=== PATIENT | female | born 1980 | race Caucasian/White ===

== ENCOUNTER → 2020-09-13 | Outpatient (CLI) | payer BC ==
[~2020-09-13] MED LIST: ANAPROX DS550 MG PO; CHANTIX1 MG PO; METOPROLOL SUCC25 MG PO; PERCOCET 5/325 T1 EA PO; PROTONIX 40 MG40 M1 PO; STOOL SOFTENER240 MG PO
[2020-09-13 06:59] LABS: HEMOGLOBIN 13.5 gm/dl (12.3-15.3); RED BLOOD COUNT 4.63 M/UL (4.00-5.10); WHITE BLOOD COUNT 9.8 K/UL (4.5-11.0)
[2020-09-13 07:37] LABS: BUN/CREATININE RATIO 17 (0-10)
[2020-09-14 08:13] LABS: FSH, SERUM 2.6 mIU/mL (.); VITAMIN D, 25-HYDROXY 26.2 ng/mL (30.0-100.0)
[2020-09-14 10:13] LABS: THYROXINE (T4) 7.3 ug/dL (4.5-12.0)
== END ==
LOC: LAB 06:10
PROVIDERS: Nurse Practitioner
DX: E55.9 Vitamin D deficiency, unspecified (principal); K21.9 Gastro-esophageal reflux disease without esophagitis; E78.5 Hyperlipidemia, unspecified; N91.2 Amenorrhea, unspecified
CPT/HCPCS: 36415; 80053; 80061; 83001; 83002; 84436; 84443; 84480; 85025; 85652; 86140

== ENCOUNTER → 2020-11-21 | Outpatient (CLI) | payer BC | LOC: RAD 15:41 | DX: F17.200 Nicotine dependence, unspecified, uncomplicated (principal) | CPT/HCPCS: 71046 ==

== ENCOUNTER → 2020-12-05 | Outpatient (CLI) | payer BC ==
[2020-12-05 08:30] LABS: HEMOGLOBIN 13.3 gm/dl (12.3-15.3); RED BLOOD COUNT 4.75 M/UL (4.00-5.10); WHITE BLOOD COUNT 7.8 K/UL (4.5-11.0)
[2020-12-05 08:54] LABS: BUN/CREATININE RATIO 9 (0-10)
[2020-12-06 08:14] LABS: THYROXINE (T4) 7.3 ug/dL (4.5-12.0); VITAMIN D, 25-HYDROXY 29.8 ng/mL (30.0-100.0)
== END ==
LOC: LAB 07:05
PROVIDERS: Nurse Practitioner
DX: K21.9 Gastro-esophageal reflux disease without esophagitis (principal); E03.9 Hypothyroidism, unspecified; E55.9 Vitamin D deficiency, unspecified
CPT/HCPCS: 36415; 80053; 84436; 84443; 84480; 85025

== ENCOUNTER → 2020-12-12 | Outpatient (CLI) | payer BC ==
[2020-12-12 13:37] LABS: HEMOGLOBIN 13.5 gm/dl (12.3-15.3); RED BLOOD COUNT 4.62 M/UL (4.00-5.10); WHITE BLOOD COUNT 7.9 K/UL (4.5-11.0)
== END ==
LOC: LAB 12:58
PROVIDERS: Nurse Practitioner
DX: R68.89 Other general symptoms and signs (principal)
CPT/HCPCS: 36415; 85025

== ENCOUNTER → 2021-01-19 | Outpatient (CLI) | payer BC ==
[2021-01-19 09:25] LABS: HEMOGLOBIN 13.9 gm/dl (12.3-15.3); RED BLOOD COUNT 4.81 M/UL (4.00-5.10); WHITE BLOOD COUNT 8.4 K/UL (4.5-11.0)
== END ==
LOC: OPSV2 08:00
PROVIDERS: Obstetrics & Gynecology
DX: Z01.818 Encounter for other preprocedural examination (principal); N92.0 Excessive and frequent menstruation with regular cycle
CPT/HCPCS: 81001; 85025; 93005

== ENCOUNTER 2021-01-26 11:12 | Day surgery (SDC) | payer BC ==
[~2021-01-26] VITALS: Ht 165.1 cm; Wt 108.0 kg
[~2021-01-26 11:12] MED LIST changes: -ANAPROX DS550 MG PO; -PERCOCET 5/325 T1 EA PO; -STOOL SOFTENER240 MG PO
[2021-01-26] MEDS ORDERED: STOOL SOFTENER240 MG PO (16:23)
[2021-01-26] MEDS ORDERED: PERCOCET 5/325 T1 EA PO (16:23)
[2021-01-27 04:49] LABS: HEMOGLOBIN 13.5 gm/dl (12.3-15.3)
[2021-01-27] MEDS ORDERED: ANAPROX DS550 MG PO (08:26)
== END 2021-01-27 11:27 | disposition home or self-care (01) ==
LOC: OR 11:12 → MED SURG 4 16:40 → OR 01-27 11:27
PROVIDERS: Obstetrics & Gynecology
DX: N80.0 Endometriosis of uterus (principal); N72 Inflammatory disease of cervix uteri; Q50.4 Embryonic cyst of fallopian tube; D64.9 Anemia, unspecified; K21.9 Gastro-esophageal reflux disease without esophagitis; F17.210 Nicotine dependence, cigarettes, uncomplicated; E66.01 Morbid (severe) obesity due to excess calories; Z68.37 Body mass index [BMI] 37.0-37.9, adult; Z88.6 Allergy status to analgesic agent; Z79.899 Other long term (current) drug therapy
CPT/HCPCS: 36415; 85014; 85018; 86850; 86900; 86901; J0690; J1100; J1170; J1885; J2001; J2250; J2405; J2704; J2710; J3010; J7120

== ENCOUNTER 2021-08-14 09:36 | Emergency (ER) | payer BC ==
[~2021-08-14] VITALS: Ht 170.2 cm; Wt 112.0 kg
[~2021-08-14 09:36] MED LIST changes: +ANAPROX DS550 MG PO; +PERCOCET 5/325 T1 EA PO; +STOOL SOFTENER240 MG PO
[2021-08-14 11:37] LABS: HEMOGLOBIN 13.7 gm/dl (12.3-15.3); RED BLOOD COUNT 4.72 M/UL (4.00-5.10); WHITE BLOOD COUNT 6.4 K/UL (4.5-11.0)
[2021-08-14 12:04] LABS: BUN/CREATININE RATIO 12 (0-10)
== END 2021-08-14 17:20 | disposition home or self-care (01) ==
LOC: ER1 09:36
PROVIDERS: Emergency Medicine
DX: U07.1 COVID-19 (principal); Z23 Encounter for immunization; F17.200 Nicotine dependence, unspecified, uncomplicated
CPT/HCPCS: 71045; 80053; 81001; 82550; 82553; 83605; 83874; 84484; 85025; 85379; 87040; 93005; 99285; J7030; J7050; M0245; U0002

== ENCOUNTER → 2021-10-17 | Outpatient (CLI) | payer BC ==
[2021-10-17 08:43] LABS: BUN/CREATININE RATIO 10 (0-10)
[2021-10-17 09:01] LABS: HEMOGLOBIN 13.7 gm/dl (12.3-15.3); RED BLOOD COUNT 4.72 M/UL (4.00-5.10); WHITE BLOOD COUNT 8.5 K/UL (4.5-11.0)
[2021-10-18 06:13] LABS: THYROXINE (T4) 7.5 ug/dL (4.5-12.0); VITAMIN D, 25-HYDROXY 26.2 ng/mL (30.0-100.0)
== END ==
LOC: LAB 07:46
PROVIDERS: Nurse Practitioner Family
DX: Z13.1 Encounter for screening for diabetes mellitus (principal); E07.9 Disorder of thyroid, unspecified; K21.9 Gastro-esophageal reflux disease without esophagitis; K22.70 Barrett's esophagus without dysplasia; E55.9 Vitamin D deficiency, unspecified; U09.9 Post COVID-19 condition, unspecified
CPT/HCPCS: 36415; 80053; 80061; 81001; 83036; 84436; 84443; 84480; 85025

== ENCOUNTER → 2022-02-19 | Outpatient (CLI) | payer BC ==
[2022-02-19 08:02] LABS: HEMOGLOBIN 13.2 gm/dl (12.3-15.3); RED BLOOD COUNT 4.65 M/UL (4.00-5.10); WHITE BLOOD COUNT 8.3 K/UL (4.5-11.0)
[2022-02-20 07:10] LABS: VITAMIN D, 25-HYDROXY 29.3 ng/mL (30.0-100.0)
[2022-02-20 08:14] LABS: THYROXINE (T4) 7.3 ug/dL (4.5-12.0)
== END ==
LOC: LAB 06:42
PROVIDERS: Nurse Practitioner Family
DX: Z13.1 Encounter for screening for diabetes mellitus (principal); K21.9 Gastro-esophageal reflux disease without esophagitis; K22.70 Barrett's esophagus without dysplasia; E55.9 Vitamin D deficiency, unspecified; E07.9 Disorder of thyroid, unspecified; U09.9 Post COVID-19 condition, unspecified
CPT/HCPCS: 36415; 80053; 80061; 81001; 83036; 84436; 84443; 84480; 85025